=== PATIENT | female | born 1950 | race Hispanic/Latino ===

== ENCOUNTER → 2018-02-02 | Outpatient (CLI) | payer MEDICARE ==
--- NOTE | 2018-02-08 08:57 | Diagnostic Imaging Report ---
#[id number] - MGSCRBIL #BILATERAL DIGITAL SCREENING MAMMOGRAM WITH CAD: 02/02/2018 CLINICAL: Routine screening. Comparison is made to exams dated: 11/25/2016 mammogram and 10/21/2016 mammogram - [facility]. Current study contains 4 films. There are scattered fibroglandular elements in both breasts. Current study was also evaluated with a Computer Aided Detection (CAD) system. There are benign calcifications in both breasts. No significant masses, calcifications, or other findings are seen in either breast. There has been no significant interval change. IMPRESSION: BENIGN There is no mammographic evidence of malignancy. A 1 year screening mammogram is recommended. The patient will be notified by letter of the results. Lambert shook/ivana:02/04/2018 08:52:17 [employer]: Barbara HAIR(R)(M), [facility] letter sent: Compared to Prior B9 Mammogram BI-RADS: 2 Benign
== END ==
LOC: MAMMO 08:33
PROVIDERS: ATTEND Internal Medicine
DX: Z12.31 Encounter for screening mammogram for malignant neoplasm of breast (principal)
CPT/HCPCS: 77067

== ENCOUNTER → 2018-04-12 | Outpatient (CLI) | payer MEDICARE ==
--- NOTE | 2018-04-12 11:09 | Diagnostic Imaging Report ---
Exam: Bone mineral density study. History: OSTEOPOROSIS Comparison: None available. Discussion: Evaluation of the left hip and lumbar spine was performed. The study is technically adequate. The patient's fracture risk is compared to an age-matched control. The patient denies prior surgery/fracture of the spine, hips or forearm. Left hip femoral neck bone mineral density: 0.8 g/cm2, T-score is -0.6, Z-score is 0.9. Left hip total bone mineral density: 1 g/cm2, T-score is 0.2, Z-score is 1.4. Lumbar spine total bone mineral density: 0.9 g/cm2, T-score is -1.5, Z-score is 0.4. Impression: 1. Bone mineralization by WHO Classification is low bone mass/osteopenia, the fracture risk is increased. 2. The FRAX 10-year probability of major osteoporotic fracture is 4% and hip fracture is 0.2%. These probabilities assume the patient is untreated. Signed by: Dr. Harmeet Henderson D.O., M.M.M. on 04/12/2018 11:06 AM
== END ==
LOC: DX 09:04
PROVIDERS: ATTEND Nurse Practitioner Adult Health
DX: M85.80 Other specified disorders of bone density and structure, unspecified site (principal)
CPT/HCPCS: 77080

== ENCOUNTER → 2018-11-15 | Outpatient (CLI) | payer MEDICARE | LOC: MAMMO 09:55 | PROVIDERS: ATTEND Internal Medicine | DX: Z12.31 Encounter for screening mammogram for malignant neoplasm of breast (principal) ==

== ENCOUNTER → 2020-01-01 | Outpatient (CLI) | payer MEDICARE | LOC: MAMMO 08:16 | PROVIDERS: ATTEND Internal Medicine | DX: Z12.31 Encounter for screening mammogram for malignant neoplasm of breast (principal) | CPT/HCPCS: 77067 ==

== ENCOUNTER → 2023-10-04 | Outpatient (REF) | payer OTHER | LOC: MAMMO 08:52 | PROVIDERS: ATTEND Family Medicine | DX: Z12.31 Encounter for screening mammogram for malignant neoplasm of breast (principal); Z13.820 Encounter for screening for osteoporosis | CPT/HCPCS: 77067; 77080 ==

== ENCOUNTER → 2023-10-28 | Outpatient (REF) | payer OTHER | LOC: US 09:19 | PROVIDERS: ATTEND Family Medicine | DX: R92.8 Other abnormal and inconclusive findings on diagnostic imaging of breast (principal) ==

== ENCOUNTER → 2023-11-11 | Outpatient (REF) | payer OTHER | LOC: DX 09:51 | PROVIDERS: ATTEND Family Medicine | DX: N63.10 Unspecified lump in the right breast, unspecified quadrant (principal); R92.1 Mammographic calcification found on diagnostic imaging of breast | CPT/HCPCS: 19083; 77065; 88305; 88342; A4648 ==